=== PATIENT | male | born 1970 | race Caucasian/White ===

== ENCOUNTER 2023-10-04 11:16 | Inpatient (IN) | payer OTHER ==
[2023-10-04 11:51] VITALS: BMI 29.8
[2023-10-04] MEDS ORDERED: MAGNESIUM HYDROX 2400MG/30ML ORAL SUSPENSION 30 ML CUP PO PRN (13:31)
[2023-10-04] MEDS ORDERED: LOPERAMIDE HCL 2 MG CAPSULE PO PRN (13:31)
[2023-10-04] MEDS ORDERED: guaiFENesin 600 MG TABLET.ER (FP) PO PRN (13:31)
[2023-10-04] MEDS ORDERED: IBUPROFEN 400 MG TABLET (FP) PO PRN (13:31)
[2023-10-04] MEDS ORDERED: NALOXONE HCL 0.4 MG/ML VIAL IM PRN (13:31)
[2023-10-04] MEDS ORDERED: DICYCLOMINE HCL 10 MG CAPSULE PO PRN (13:31)
[2023-10-04] MEDS ORDERED: ACETAMINOPHEN 325 MG TABLET (FP) PO PRN (13:31)
[2023-10-04] MEDS ORDERED: ONDANSETRON *ODT* 4 MG TABLET SL PRN (13:31)
[2023-10-04] MEDS ORDERED: BENZONATATE 200 MG CAPSULE PO PRN (13:31)
[2023-10-04] MEDS ORDERED: LORazepam 1 MG TABLET PO PRN (13:31)
[2023-10-04] MEDS ORDERED: BENZOCAINE/MENTHOL (CHLORASEPTIC ) LOZENGE MM PRN (13:31)
[2023-10-04] MEDS ORDERED: IBUPROFEN 600 MG TABLET (FP) PO PRN (13:31)
[2023-10-04] MEDS ORDERED: NALOXONE HCL (KLOXXADO) 8 MG SPRAY NS PRN (13:31)
[2023-10-04] MEDS ORDERED: MAG HYDROX/AL HYDROX/SIMETH 30 ML UNIT-DOSE CUP PO PRN (13:31)
[2023-10-04] MEDS ORDERED: POLYETHYLENE GLYCOL (HEALTHYLAX) 3350 17 GM PACKET PO PRN (13:31)
[2023-10-04] MEDS ORDERED: METOPROLOL TARTRATE 25 MG TABLET (FP) PO ONE (16:30)
[2023-10-04] MEDS: LORazepam 2 MG TABLET PO SCH ×2 (17:19→22:07)
[2023-10-04] MEDS: THIAMINE HCL 100 MG TABLET (FP) PO SCH (22:07)
[2023-10-04] MEDS: METOPROLOL TARTRATE 25 MG TABLET (FP) PO SCH (22:07)
[2023-10-04] MEDS: MELATONIN 5 MG TABLETS PO SCH (22:07)
[2023-10-04] MEDS: HYDROCORTISONE 2.5% TOPICAL CREAM 30 GM TUBE TP SCH (22:08)
[2023-10-05] MEDS: LORazepam 2 MG TABLET PO SCH ×4 (05:46→22:45)
[2023-10-05] MEDS: METHOCARBAMOL 500 MG TABLET PO PRN (05:48)
[2023-10-05] MEDS: PRENATAL VITAMINS W/ FOLIC ACID TABLET (FP) PO SCH (10:23)
[2023-10-05] MEDS: METOPROLOL TARTRATE 25 MG TABLET (FP) PO SCH ×2 (10:23→22:45)
[2023-10-05] MEDS: ASPIRIN 81 MG CHEWABLE TABLETS PO SCH (10:23)
[2023-10-05] MEDS: hydrOXYzine PAMOATE 25 MG CAPSULE (FP) PO PRN (10:24)
[2023-10-05] MEDS: NICOTINE 21 MG/24 HOURS TOPICAL PATCH TD SCH (10:25)
[2023-10-05 11:34] LABS: CHLORIDE 96 mmol/L (98-107); HEMATOCRIT 40.8 % (35.4-49); HEMOGLOBIN 13.9 GM/dL (11.7-16.9); MCH 34.1 pg (25.7-33.7); MCHC 34.1 g/dl (32.0-35.9); MEAN CELL VOLUME 99.9 fl (80-96); MEAN PLT VOLUME 10.5 fl (7.5-11.1); PLATELET COUNT 104 10^3/uL (134-434); POTASSIUM 3.2 mmol/L (3.5-5.1); RBC 4.08 M/mm3 (4.00-5.60); RDW 13.9 % (11.9-15.9); SODIUM 135 mmol/L (136-145); WHITE BLOOD COUNT 5.8 K/mm3 (4.0-10.0)
[2023-10-05 11:38] LABS: ANION GAP 13 mmol/L (4-13); BLOOD UREA NITROGEN 24.4 mg/dL (7-18); CALCIUM 8.1 mg/dL (8.5-10.1); CO2 26 mmol/L (21-32); GLUCOSE,RANDOM 120 mg/dL (74-106)
[2023-10-05 11:39] LABS: ALBUMIN 3.4 g/dl (3.4-5.0)
[2023-10-05 11:42] LABS: SGOT/AST 70 U/L (15-37); SGPT/ALT 49 U/L (13-61)
[2023-10-05 11:44] LABS: BILIRUBIN,TOTAL 0.9 mg/dL (0.2-1)
[2023-10-05 11:45] LABS: ALK PHOS 55 U/L (45-117)
[2023-10-05 11:46] LABS: INR 1.09 (0.83-1.09); PROTHROMBIN TIME (PATIENT) 12.6 SEC (9.7-13.0)
[2023-10-05] MEDS ORDERED: POTASSIUM CHLORIDE ORAL LIQUID 20 MEQ/15 ML PO ONE (14:44)
[2023-10-05] MEDS: LACTULOSE 20 GM/30 ML UDC (FOR ORAL USE ONLY) PO SCH ×2 (17:29→22:43)
[2023-10-05] MEDS: BISMUTH SUBSALICYLATE 524 MG/30 ML PO PRN (19:57)
[2023-10-05] MEDS: HYDROCORTISONE 2.5% TOPICAL CREAM 30 GM TUBE TP SCH (22:43)
[2023-10-05] MEDS: POTASSIUM CHLORIDE ORAL LIQUID 20 MEQ/15 ML PO SCH (22:44)
[2023-10-05] MEDS: MELATONIN 5 MG TABLETS PO SCH (22:45)
[2023-10-05] MEDS: THIAMINE HCL 100 MG TABLET (FP) PO SCH (22:45)
[2023-10-06] MEDS: LORazepam 1 MG TABLET PO SCH ×4 (05:15→22:18)
[2023-10-06] MEDS: POTASSIUM CHLORIDE ORAL LIQUID 20 MEQ/15 ML PO SCH ×2 (10:32→22:17)
[2023-10-06] MEDS: PRENATAL VITAMINS W/ FOLIC ACID TABLET (FP) PO SCH (10:33)
[2023-10-06] MEDS: hydrOXYzine PAMOATE 25 MG CAPSULE (FP) PO PRN ×2 (10:33→22:18)
[2023-10-06] MEDS: METHOCARBAMOL 500 MG TABLET PO PRN ×2 (10:33→22:18)
[2023-10-06] MEDS: METOPROLOL TARTRATE 25 MG TABLET (FP) PO SCH ×2 (10:33→22:20)
[2023-10-06] MEDS: ASPIRIN 81 MG CHEWABLE TABLETS PO SCH (10:33)
[2023-10-06] MEDS: LACTULOSE 20 GM/30 ML UDC (FOR ORAL USE ONLY) PO SCH ×4 (10:33→22:19)
[2023-10-06] MEDS: NICOTINE 21 MG/24 HOURS TOPICAL PATCH TD SCH (10:36)
[2023-10-06 11:54] LABS: POTASSIUM 3.3 mmol/L (3.5-5.1)
[2023-10-06 12:18] LABS: CALCIUM 9.2 mg/dL (8.5-10.1)
[2023-10-06 12:19] LABS: ALBUMIN 3.8 g/dl (3.4-5.0); BLOOD UREA NITROGEN 22.8 mg/dL (7-18)
[2023-10-06 12:22] LABS: CREATININE 1.1 mg/dL (0.55-1.3)
[2023-10-06 12:23] LABS: TOT PROT 7.5 g/dl (6.4-8.2)
[2023-10-06] MEDS: BISMUTH SUBSALICYLATE 524 MG/30 ML PO PRN (18:17)
[2023-10-06] MEDS: THIAMINE HCL 100 MG TABLET (FP) PO SCH (22:18)
[2023-10-06] MEDS: MELATONIN 5 MG TABLETS PO SCH (22:18)
[2023-10-06] MEDS: HYDROCORTISONE 2.5% TOPICAL CREAM 30 GM TUBE TP SCH (22:20)
[2023-10-07] MEDS ORDERED: LORazepam 0.5 MG TABLET PO PRN
[2023-10-07] MEDS: LORazepam 0.5 MG TABLET PO SCH ×2 (05:21→10:30)
[2023-10-07 08:39] VITALS: RESP 18
[2023-10-07] MEDS: LACTULOSE 20 GM/30 ML UDC (FOR ORAL USE ONLY) PO SCH ×2 (10:27→13:08)
[2023-10-07] MEDS: PRENATAL VITAMINS W/ FOLIC ACID TABLET (FP) PO SCH (10:28)
[2023-10-07] MEDS: METHOCARBAMOL 500 MG TABLET PO PRN (10:28)
[2023-10-07] MEDS: POTASSIUM CHLORIDE ORAL LIQUID 20 MEQ/15 ML PO SCH (10:28)
[2023-10-07] MEDS: ASPIRIN 81 MG CHEWABLE TABLETS PO SCH (10:29)
[2023-10-07] MEDS: hydrOXYzine PAMOATE 25 MG CAPSULE (FP) PO PRN (10:29)
[2023-10-07] MEDS: METOPROLOL TARTRATE 25 MG TABLET (FP) PO SCH (10:29)
[2023-10-07] MEDS: NICOTINE 21 MG/24 HOURS TOPICAL PATCH TD SCH (10:31)
[2023-10-07 12:34] VITALS: BP 108/79; PULSE 87; TEMP 97.6
[2023-10-07] MEDS ORDERED: SUVOREXANT 10 MG TABLET PO PRN (22:00)
[2023-10-08] MEDS ORDERED: LORazepam 0.5 MG TABLET PO ONE (05:00)
== END 2023-10-07 14:26 | disposition home or self-care (01) | DRG 897 ==
LOC: SUATTDRO 11:16 → YASAS 11:16 → Y6N 14:21
PROVIDERS: ADMIT Allergy & Immunology; ATTEND Surgery
PROC: HZ2ZZZZ Detoxification Services for Substance Abuse Treatment (ICD-10-PCS; principal; 2023-10-04)
DX: F10.230 Alcohol dependence with withdrawal, uncomplicated (principal); E72.20 Disorder of urea cycle metabolism, unspecified; F17.210 Nicotine dependence, cigarettes, uncomplicated; E87.6 Hypokalemia; M54.31 Sciatica, right side; I25.10 Atherosclerotic heart disease of native coronary artery without angina pectoris; Z95.5 Presence of coronary angioplasty implant and graft; Z62.810 Personal history of physical and sexual abuse in childhood
CPT/HCPCS: 36415; 80053; 80307; 82140; 83036; 84132; 85027; 85610; 86780; 87635; 87811; Q0162